=== PATIENT | male | born 1990 | race Caucasian/White ===

== ENCOUNTER 2016-06-04 08:18 | Day surgery (SDC) | payer OTHER ==
[2016-05-29 14:33] LABS: BASOPHILS % (AUTO) 0.3 % (0.0-2.0); EOSINOPHILS % (AUTO) 0.8 % (1.0-6.0); HEMATOCRIT 43.5 % (41-53); HEMOGLOBIN 14.5 g/dL (13.5-17.5); LYMPHOCYTES # (AUTO) 2.2 K/uL (1.0-4.8); LYMPHOCYTES % (AUTO) 30.4 % (22.0-44.0); MEAN CORPUSCULAR HEMOGLOBIN 28.7 pg (26.0-34.0); MEAN CORPUSCULAR HGB CONC 33.4 G/dL (31.0-37.0); MEAN CORPUSCULAR VOLUME 86 fL (80-100); MONOCYTES # (AUTO) 0.8 K/uL (0.1-1.0); MONOCYTES % (AUTO) 10.8 % (2.0-9.0); NEUTROPHILS # (AUTO) 4.1 K/uL (1.8-7.7); NEUTROPHILS % (AUTO) 57.7 % (40.0-70.0); PLATELET COUNT (AUTO) 287 K/uL (150-450); RED BLOOD CELL COUNT(AUTO) 5.06 MIL/uL (4.50-5.90); RED CELL DISTRIBUTION WIDTH 12.9 % (11.5-14.5); WHITE BLOOD COUNT (AUTO) 7.1 K/uL (4.5-11.0)
[2016-05-29 14:45] LABS: PROTHROMBIN TIME 10.2 SEC (9.4-11.6)
[2016-05-29 14:49] LABS: ANION GAP 2 mmol/L (8-16); CALCIUM, TOTAL 9.2 mg/dL (8.8-10.5); CARBON DIOXIDE 29 mmol/L (22-29); CHLORIDE 102 mmol/L (98-107); CREATININE 0.88 mg/dL (0.60-1.30); GLOMERULAR FILTR. RATE CALC > 60 mL/min (>60); POTASSIUM 4.2 mmol/L (3.5-5.1); SODIUM SERUM 133 mmol/L (136-145); UREA NITROGEN, BLOOD 19 mg/dL (7-18)
[2016-05-29 14:54] LABS: ALANINE AMINOTRANSFERASE 39 U/L (12-78); ASPARTATE AMINOTRANSFERASE 13 U/L (15-37); BILIRUBIN,TOTAL 0.5 mg/dL (0.1-1.0); TOTAL PROTEIN, SERUM 7.6 g/dL (6.4-8.2)
[~2016-06-04] VITALS: Ht 172.7 cm; Wt 68.2 kg
[~2016-06-04 08:18] MED LIST: BUPIVACAINE HCL/PF 0.5% 30 ML VIAL ONE; DEXAMETHASONE SOD PHOS 4 MG/ML VIAL IVP ONE; FentaNYL CITRATE-PF 100 MCG/2 ML VIAL IVP ONE; GLYCOPYRROLATE 0.2 MG/ML VIAL IM ONE; LIDOCAINE HCL/PF 2% 5 ML VIAL IM ONE; METOCLOPRAMIDE HCL 5 MG/ML 2 ML VIAL IVP ONE; MIDAZOLAM HCL 2 MG/2 ML VIAL IVP ONE; MORPHINE SULFATE/PF 0.5 MG/ML 10 ML AMP IVP ONE; NEOSTIGMINE METHYLSULFATE 1 MG/ML 10 ML VIAL IVP ONE; ONDANSETRON HCL 4 MG/2 ML VIAL IVP ONE; PROPOFOL 1% 20 ML VIAL IVP ONE; ROCURONIUM BROMIDE 10 MG/ML 5 ML VIAL IVP ONE; SODIUM CHLORIDE 0.9% 0 ML ONE; SODIUM CL IRRIG SOLN BAG 9,000 ML IRRIG ONE
[2016-06-04] MEDS ORDERED: RINGERS SOLUTION,LACTATED 1,000 ML IV ONE ×3 (08:23→11:42)
[2016-06-04 09:19] LABS: GLUCOSE, URINE (UA) NEGATIVE (NEGATIVE); KETONES,URINE NEGATIVE (NEGATIVE); LEUKOCYTE ESTERASE ,URINE NEGATIVE (NEGATIVE); OCCULT BLOOD,URINE SMALL (NEGATIVE); PROTEIN,URINE NEGATIVE (NEGATIVE)
[2016-06-04 09:29] LABS: APPEARANCE,URINE CLEAR (CLEAR)
[2016-06-04 09:30] LABS: ADD UA MICROSCOPIC YES; RBC,URINE 0-2 /HPF (0-2); WBC,URINE None Seen /HPF (0-5)
[2016-06-04] MEDS ORDERED: BUPIVACAINE HCL/PF 0.25% 30 ML VIAL ONE (13:07)
[2016-06-04] MEDS ORDERED: FentaNYL CITRATE-PF 100 MCG/2 ML VIAL IVP PRN (13:15)
[2016-06-04] MEDS ORDERED: MEPERIDINE-PF 25 MG/ML SYRINGE IVP PRN (13:15)
[2016-06-04] MEDS ORDERED: HYDROmorphone 2 MG/ML SYRINGE IVP PRN (13:15)
[2016-06-04] MEDS ORDERED: GUM MASTIC/STORAX/MSAL/ALCOHOL LIQUID 0.67 ML VIAL TP ONE (13:16)
[2016-06-04] MEDS ORDERED: OXYGEN THERAPY IH SCH (20:00)
== END 2016-06-04 15:30 | disposition home or self-care (01) ==
LOC: SURGERY 08:18
PROVIDERS: ATTEND Orthopaedic Surgery
DX: S83.521A Sprain of posterior cruciate ligament of right knee, initial encounter (principal); M22.41 Chondromalacia patellae, right knee; F17.200 Nicotine dependence, unspecified, uncomplicated; Z72.89 Other problems related to lifestyle; Z79.01 Long term (current) use of anticoagulants; V43.52XA Car driver injured in collision with other type car in traffic accident, initial encounter; Y93.9 Activity, unspecified; Y92.9 Unspecified place or not applicable
CPT/HCPCS: 29889; 36415; 80053; 81001; 85025; 85610; 85730; 87081; 88300; C1713; C1768; J0690; J1100; J2250; J2274; J2405; J2704; J2765; J3010; J3490 ×4; J7120